=== PATIENT | female | born 1975 | race Caucasian/White ===

== ENCOUNTER 2017-02-23 07:58 | Day surgery (SDC) | payer OTHER ==
[~2017-02-23] VITALS: Ht 152.4 cm; Wt 57.1 kg
[2017-02-23] MEDS ORDERED: AZEL205.2 NASAL (08:34)
[2017-02-23] MEDS ORDERED: OMEP40CA6 PO (08:34)
[2017-02-23] MEDS ORDERED: FLUT16SP17 NASAL (08:34)
[2017-02-23 08:38] VITALS: Ht 152.4 cm; Wt 57.1 kg
[2017-02-23] MEDS ORDERED: BIRTH CONTROL PATCH TOPICAL (08:41)
[2017-02-23] MEDS ORDERED: LIDOCAINE 100 MG SYRINGE ONE (08:53)
[2017-02-23] MEDS ORDERED: LIDOCAINE 4% SOLUTION 50 ML BTL ONE (08:53)
[2017-02-23 08:59] VITALS: BP 165/78; PULSE 87; RESP 20
[2017-02-23 09:51] VITALS: BP 134/78; PULSE 88; RESP 14
--- NOTE | 2017-02-23 10:35 | GILP ---
DATE OF PROCEDURE: PROCEDURE: Esophagogastroduodenoscopy. PREOPERATIVE DIAGNOSIS: The patient presenting with history of chronic heartburn unresponsive to om eprazole. Rule out esophagitis, rule out Castillo esophagus, rule out peptic ulcer disease. POSTOPERATIVE DIAGNOSES: 1. Mild patchy gastritis. 2. Mild reflux esophagitis, Mckinney classification A. DESCRIPTION OF PROCEDURE: After the informed written consent was obtained, the patient was asked to lie on the left lateral side, a total of 4 mg Versed and 50 mcg of fentanyl was given as intravenou s anesthesia. When the patient became somnolent, the Olympus video upper endoscope was introduced into the orophar ynx, then into the esophagus. Esophagus showed evidence of raised erythematous area above the GE ju nction indicating Mckinney classification A of reflux esophagitis. Biopsies were done to rule ou t Castillo's esophagus. At this time, scope was advanced into the stomach. Several areas of erythem a noted in the stomach in a patchy distribution indicating mild gastritis. Mucosa of the duodenum a ppeared normal up to the end of the third portion. At this time, biopsy was done from the antrum an d the fundus to rule out H. pylori infection. Scope at this time was withdrawn and no additional ab normalities detected and the procedure was terminated. PLAN: Recommend proton pump inhibitor therapy, omeprazole, can be changed to Protonix 40 mg a day f or 8 weeks. Dictated By: DUKE MCFARLANE/LINDA Conf#: [id number] DID#: [id number] CC: [facility];*EndCC*
[2017-02-23] MEDS ORDERED: FENTAnyl 50 MCG/ML VIAL ONE (11:14)
[2017-02-23] MEDS ORDERED: MIDAZOLAM 1 MG/ML 2 ML INJ ONE ×2 (11:14)
== END 2017-02-23 15:15 | disposition home or self-care (01) ==
LOC: GIL 07:58
PROVIDERS: ATTEND Internal Medicine Gastroenterology
DX: K29.30 Chronic superficial gastritis without bleeding (principal); K21.0 Gastro-esophageal reflux disease with esophagitis
CPT/HCPCS: 43239; 84703; 88305; 88312; 88313; J2001; J2250; J3010; Z7610